=== PATIENT | female | born 1950 | race Asian ===

== ENCOUNTER 2017-03-21 09:20 | Day surgery (SDC) | payer OTHER ==
[2017-03-04 17:38] VITALS: BMI 26.0
[2017-03-21] MEDS ORDERED: MIDAZOLAM HCL 2 MG/2 ML SINGLE DOSE VIAL ONE ×2 (10:46)
[2017-03-21] MEDS ORDERED: CLINDAMYCIN 600 MG PREMIX BAG IVPB ONE (11:15)
[2017-03-21] MEDS ORDERED: ACETAMINOPHEN INJECTION 100 ML IVPB ONE (11:38)
[2017-03-21] MEDS ORDERED: GLYCOPYRROLATE 0.2 MG/1 ML VIAL ONE (11:46)
[2017-03-21] MEDS ORDERED: NEOSTIGMINE METHYLSULFATE 0.5 MG/ML - 10 ML MDV ONE (11:47)
[2017-03-21] MEDS ORDERED: oxyCODONE HCL 5 MG TABLET PO PRN (12:11)
--- NOTE | 2017-03-21 12:28 | OP ---
Operative Note - Note: Operative Date: 03/21/17 Pre-Operative Diagnosis: History of Breast Cancer, Breast Asymmetry after Breast Reconstruction Operation: Left Breast Staged Breast Reconstruction- Change to larger shaped implant. Implants: [place] MemoryShape Gel 495cc Surgeon: Dennis Godinez Anesthesiologist/[employer] PERSON: Kyle Mathis Anesthesia: General Operative Report Dictated: Yes
[2017-03-21] MEDS ORDERED: PROMETHAZINE HCL 25 MG/1 ML VIAL IVPUSH PRN (12:56)
[2017-03-21] MEDS ORDERED: ONDANSETRON 4 MG/2 ML VIAL IVPUSH PRN (12:56)
[2017-03-21] MEDS ORDERED: LACTATED RINGERS SOLUTION 1,000 ML IV SCH (13:00)
[2017-03-21 14:39] VITALS: TEMP 97.6
[2017-03-21 16:36] VITALS: BP 121/62; PULSE 70
--- NOTE | 2017-03-22 11:31 | OP ---
DATE OF OPERATION: 03/21/2017 AGE: 66 SEX: Female. PREOPERATIVE DIAGNOSIS: History of breast cancer with breast asymmetry after reconstruction. POSTOPERATIVE DIAGNOSIS: History of breast cancer with breast asymmetry after reconstruction. PROCEDURE PERFORMED: Left breast staged reconstruction with removal of breast implant and change to a larger, shaped implant. SURGEON: Dennis Shepherd MD ANESTHESIA: General, Dr. Mathis. BRIEF HISTORY: The patient is status post left breast cancer with a total mastectomy on that side, performed by . The patient has undergone radiation to the left breast and subsequently has severe radiation changes on that side at a point after her reconstruction was completed. The patient now presents with a modest asymmetry with increased upper pole fullness and a slightly decreased volume on the left side compared to the right side and presents for exchange to a shaped and slightly larger implant. DESCRIPTION OF PROCEDURE: The patient was on the operating table in supine position, and general anesthesia was administered by the anesthesiologist. The area of the chest was prepped and draped in the usual sterile fashion, and the right breast was kept in the operative field. An inframammary incision was made in the inframammary fold as marked with the patient in the standing position. This incision was 8 cm in length and carried down sharply through the subcutaneous tissues using electrocautery. The implant capsule was entered through the AlloDerm which has been well incorporated. The implant was removed, and a fiberoptic lighted retractor was introduced onto the field. This retractor was used to further extend the implant pocket to accommodate the shaped, larger implant. Gloves were changed, and the pocket was irrigated with dilute betadine solution. The implant selected was a 495-mL [place] MemoryShape Tall Height implant. The implant was inserted with the assistance of a Hebert Funnel, and the markings on the implant were used to confirm proper orientation. The implant was inserted without difficulty, and the pocket was further adjusted with the implant in place. The wound was then closed in layered fashion. Deep tissues were closed with No. 3-0 Biosyn suture in interrupted buried fashion, and deep dermal layer of 4-0 V-Loc 90 was used for skin. The wound was further secured with Steri-Strips, and sterile dressings were applied and secured with a surgical bra. The patient was then taken from the operating room to the recovery room in satisfactory condition, having tolerated the procedure well. DENNIS SHEPHERD M.D. /[id number]
--- NOTE | 2017-03-24 13:30 | PATH ---
Surgical Pathology Report Patient Name: BALDEMAR IQBAL Med. Rec. #: [id number] /Age/Gender: 1950 (Age: 66) / F Account: [id number] Location: [facility] Taken: 03/21/2017 Received: 03/21/2017 Reported: 03/24/2017 Physicians: Dennis Godinez M.D. Specimen(s) Received RIGHT BREAST IMPLANT Clinical History Breast cancer Final Diagnosis IMPLANT, LEFT BREAST, REMOVAL: BREAST IMPLANT (GROSS EXAM). Electronically Signed Bobby Soriano M.D. Gross Description Received fresh labeled "left breast implant" is a 15 x 15 x 3.5 cm gel-filled plastic sac consistent with a breast implant. No rupture is identified. The specimen is designated "[place] 400cc [id number]". This is for gross identification only. [facility]/03/21/2017 [facility]/03/21/2017
== END 2017-03-21 16:48 | disposition home or self-care (01) ==
LOC: JASU-SURG 09:20
PROVIDERS: ATTEND Plastic Surgery
PROC: 0HWU0JZ Revision of Synthetic Substitute in Left Breast, Open Approach (ICD-10-PCS; principal; 2017-03-21 11:00)
DX: N65.1 Disproportion of reconstructed breast (principal); Z85.3 Personal history of malignant neoplasm of breast
CPT/HCPCS: 88300-TC; 94760

== ENCOUNTER 2019-05-12 08:29 | Day surgery (SDC) | payer OTHER | END 2019-05-12 11:00 | disposition still patient (30) | LOC: JASU-ENDO 08:29 ==

== ENCOUNTER 2019-05-12 11:01 | Inpatient (IN) | payer OTHER ==
[2019-05-12] MEDS ORDERED: ASPIRIN 325 MG ENTERIC COATED TABLET (FP) PO ONE (12:13)
[2019-05-12] MEDS ORDERED: NITROGLYCERIN 2% OINTMENT - 1GM PACKET TD ONE ×2 (12:13→12:24)
[2019-05-12] MEDS ORDERED: ASPIRIN 325 MG TABLET ONE (12:24)
--- NOTE | 2019-05-12 13:02 | PDOC ---
Documentation entered by Justine Carrera SCRIBE, acting as scribe for Daryn Harvey MD. Daryn Harvey MD: This documentation has been prepared by the Debi moreno Sammi, SCRIBE, under my direction and personally reviewed by me in its entirety. I confirm that the documentation accurately reflects all work, treatment, procedures, and medical decision making performed by me. History of Present Illness - General Chief Complaint: Chest Pain Stated Complaint: Chest Pain Time Seen by Provider: 05/12/19 11:18 - History of Present Illness Initial Comments: 05/12/19 12:16 The patient is a 68 year old female with PMH of breast cancer (in remission 6 years), diabetes, hypothyroidism, sarcoidosis who presents with ~2 hours of constant chest pressure, 7/10 in severity, with associated shortness of breath, alleviated with deep inspiration. The patients onset of symptoms before routine colonoscopy. She notes utilizing prep for the procedure yesterday. Past History - Past Medical History Allergies/Adverse Reactions: Allergies Allergy/AdvReac Type Severity Reaction Status Date / Time loratadine [From Claritin] Allergy Severe Verified 05/12/19 11:08 Sulfa (Sulfonamide Allergy Severe Verified 05/12/19 11:08 Antibiotics) [Sulfa(Sulfonamide Antibiotics)] ciprofloxacin [From Cipro] Allergy Intermediate Verified 05/12/19 11:08 Penicillins Allergy Mild Verified 05/12/19 11:08 ceftriaxone Allergy ERYTHEMA Verified 05/12/19 11:08 vancomycin Allergy Verified 05/12/19 11:08 cantalope/honeydew Allergy Uncoded 05/12/19 11:08 YELLOW/GREEN ARNALDO Allergy Uncoded 05/12/19 11:08 Home Medications: Ambulatory Orders Multivitamin [Multi-Day Vitamins] 1 each PO DAILY 07/30/12 Vitamin B Complex 1 each PO DAILY 07/30/12 Docosahexanoic Acid/Epa [Fish Oil Softgel] 1 each PO DAILY 05/10/13 Calcium Carbonate/Vitamin D3 [Calcium 500-Vit D3 600 Tablet] 1 tab PO DAILY 11/07 Levothyroxine Sodium [Levo-T] 0.25 tab PO DAILY 06/27/16 metFORMIN HCL [Metformin HCl] 500 mg PO DAILY 06/27/16 Ascorbate Calcium [Vitamin C] 500 mg PO DAILY 03/04/17 Cyanocobalamin [Vitamin B12 -] 1,000 mcg PO DAILY 05/11/19 Pyridoxine HCl (Vitamin B6) [Vitamin B-6] 1 tab PO DAILY 05/11/19 Anemia: Yes Asthma: No Cancer: Yes (left breast ca with positive nodes, S/P RT, CHEMO) Cardiac Disorders: No CVA: No COPD: No CHF: No Dementia: No Diabetes: Yes (NIDDM) GI Disorders: Yes (ATROPHIC GASTRITIS, HIATAL HERNIA) Disorders: No HTN: No Hypercholesterolemia: Yes Liver Disease: No Seizures: No Thyroid Disease: Yes (HYPOTHYROID, THYROID NODULES) - Surgical History Abdominal Surgery: No Appendectomy: No Cardiac Surgery: No Cholecystectomy: Yes (LAPAROSCOPIC) Lung Surgery: No Neurologic Surgery: No Orthopedic Surgery: Yes (FX ARM) - Suicide/Smoking/Psychosocial Hx Smoking Status: No Smoking History: Never smoked Have you smoked in the past 12 months: No Number of Cigarettes Smoked Daily: 0 Information on smoking cessation initiated: No Hx Alcohol Use: No Drug/Substance Use Hx: No Substance Use Type: None Hx Substance Use Treatment: No Cardiac Specific PMH - Complaint Specific PMHX Pacemaker: No Review of Systems - Review of Systems Comments:: 05/12/19 12:17 CONSTITUTIONAL: No fever, no chills, no fatigue EYES: No visual changes ENT: No ear pain, no sore throat CARDIOVASCULAR: (+)chest pressure. no palpitations RESPIRATORY: (+)SOB. No cough GI: No abdominal pain, no nausea, no vomiting, no constipation, no diarrhea GENITOURINARY: No dysuria, no frequency, no hematuria MUSKULOSKELETAL: No backpain, no joint pain, no myalgias SKIN: No rash NEURO: No headache *Physical Exam - Vital Signs Last Vital Signs Temp Pulse Resp BP Pulse Ox 97.7 F 65 20 169/75 100 05/12/19 11:09 05/12/19 11:09 05/12/19 11:09 05/12/19 11:05/12/19 11:09 - Physical Exam Comments: 05/12/19 13:08 CONSTITUTIONAL: Well-appearing; well-nourished; in no apparent distress HEAD: (+)alopecia. Normocephalic; atraumatic EYES: PERRL; EOM intact ENMT: External appears normal; normal oropharynx NECK: Supple; non-tender; no cervical lymphadenopathy CARD: Normal S1, S2; no murmurs, rubs, or gallops CHEST: (+)Left mastectomy with implant. RESP: Normal chest excursion with respiration; breath sounds clear and equal bilaterally; no wheezes, rhonchi, or rales ABD: Soft, non-distended; non-tender; no palpable organomegaly, no palpable hernias EXT: Normal ROM in all four extremities; non-tender to palpation; distal pulses intact SKIN: Warm, dry, no rash NEURO: No focal neurological deficiencies. Heart Score/ECG Review - History History: Moderately suspicious - Electrocardiogram EKG: Normal - Age Age: >/= 65 - Risk Factors Risk Factors Heart Score: Yes Hx Hypercholesterolemia, Yes Hx Diabetes Based on the list above the patient has:: 1-2 risk factors - Troponin Troponin: </= normal limit - Score Heart Score - Total: 4 - ECG Impressions Comment:: 05/12/19 12:17 normal sinus rhythm normal ECG ED Treatment Course - LABORATORY CBC & Chemistry Diagram: 05/12/19 13:43 05/12/19 13:43 - ADDITIONAL ORDERS Additional order review: Laboratory Results 05/12/19 13:43 Sodium 141 Potassium 3.8 Chloride 105 Carbon Dioxide 30 Anion Gap 5 L BUN 12.9 Creatinine 0.8 Est GFR (CKD-EPI)AfAm 88.42 Est GFR (CKD-EPI)NonAf 76.29 Random Glucose 114 H Calcium 9.2 Total Bilirubin 0.4 AST 21 ALT 27 Alkaline Phosphatase 107 Creatine Kinase 217 H Creatine Kinase Index 1.2 CK-MB (CK-2) 2.7 Troponin I < 0.02 Total Protein 6.9 Albumin 3.5 05/12/19 13:43 RBC 4.48 MCV 82.9 MCHC 33.1 RDW 14.7 D MPV 8.9 Neutrophils % 54.4 D Lymphocytes % 35.1 D Monocytes % 5.8 Eosinophils % 3.3 D Basophils % 1.4 - RADIOLOGY Radiology Studies Ordered: Category Date Time Status CHEST X-RAY PORTABLE* [RAD] Stat Radiology 05/12/19 11:58 Completed - Medications Given in the ED: ED Medications Discontinued Medications Generic Name Dose Route Start Last Admin Trade Name Freq PRN Reason Stop Dose Admin Aspirin 325 mg 05/12/19 12:13 05/12/19 12:40 Ecotrin - PO 05/12/19 12:14 325 mg ONCE ONE Administration Nitroglycerin 1 inch 05/12/19 12:13 05/12/19 12:40 Nitro-Bid 2% Paste - TD 05/12/19 12:14 1 inch ONCE ONE Administration Medical Decision Making - Medical Decision Making 05/12/19 13:00 pt is a 68 y/o female with hx/o beast ca (now in remission), dm, hypothyroidism who presents from endoscopy suite for chest presure, and sob. pt was scheduled for elective colonoscopy when she developed sxs. pt is well appearing in the ed. ekg is wnl. ches x-ray shows no acute pathology. will administer asa, ntg trasndermal. will obtain cardiac profile. will pace in obs. 05/12/19 14:56 pt with improved chest pressure. heart score of 4. will place in obs. *DC/Admit/Observation/Transfer Diagnosis at time of Disposition: Acute coronary syndrome - Discharge Dispostion Condition at time of disposition: Fair Decision to Admit order: Yes - Referrals Referrals: Karen Katz [Primary Care Provider] - - Patient Instructions - Post Discharge Activity
[2019-05-12 13:58] LABS: BASO % 1.4 % (0-2.0); EOS % 3.3 % (0-4.5); HEMATOCRIT 37.2 % (32.4-45.2); HEMOGLOBIN 12.3 GM/dL (10.7-15.3); LYMPH % 35.1 % (8-40); MCH 27.4 pg (25.7-33.7); MCHC 33.1 g/dl (32.0-36.0); MEAN CELL VOLUME 82.9 fl (80-96); MEAN PLT VOLUME 8.9 fl (7.5-11.1); MONO % 5.8 % (3.8-10.2); NEUT % 54.4 % (42.8-82.8); PLATELET COUNT 262 K/MM3 (134-434); RBC 4.48 M/mm3 (3.60-5.2); RDW 14.7 % (11.6-15.6); WHITE BLOOD COUNT 5.9 K/mm3 (4.0-10.0)
[2019-05-12 14:36] LABS: ALBUMIN 3.5 g/dl (3.4-5.0); ALK PHOS 107 U/L (45-117); ANION GAP 5 MMOL/L (8-16); BILIRUBIN,TOTAL 0.4 mg/dL (0.2-1); BLOOD UREA NITROGEN 12.9 mg/dL (7-18); CALCIUM 9.2 mg/dL (8.5-10.1); CHLORIDE 105 mmol/L (98-107); CO2 30 mmol/L (21-32); CREATININE 0.8 mg/dL (0.55-1.3); GLUCOSE,RANDOM 114 mg/dL (74-106); POTASSIUM 3.8 mmol/L (3.5-5.1); SGOT/AST 21 U/L (15-37); SGPT/ALT 27 U/L (13-61); SODIUM 141 mmol/L (136-145); TOT PROT 6.9 g/dl (6.4-8.2)
--- NOTE | 2019-05-12 15:09 | EKG ---
Test Reason : Blood Pressure : / mmHG Vent. Rate : 062 BPM Atrial Rate : 062 BPM P-R Int : 140 ms QRS Dur : 090 ms QT Int : 444 ms P-R-T Axes : 067 079 056 degrees QTc Int : 450 ms POOR DATA QUALITY, INTERPRETATION MAY BE ADVERSELY AFFECTED NORMAL SINUS RHYTHM NORMAL ECG WHEN COMPARED WITH ECG OF 05-JUN-2014 21:43, NO SIGNIFICANT CHANGE WAS FOUND Confirmed by EVELYN ELAM MD ([id number]) on 05/12/2019 3:09:01 PM Referred By: Confirmed By:EVELYN ELAM MD
--- NOTE | 2019-05-12 16:49 | HP ---
CHIEF COMPLAINT: Chest heaviness PCP: Dr. Sterling Jones HISTORY OF PRESENT ILLNESS: 68 y/o female PMH of NIDDM, HLD, hypothyroidism, sarcoidosis, and breast cancer sent to ED from colonoscopy suite c/o a sensation of heaviness in the chest. Pt came to hospital this AM for colonoscopy. She performed bowel prep at home yesterday. The pt was being administered anesthesia via saline lock and she began to feel a heaviness in her chest and have SOB. The sensation is located diffusely across her chest, non-radiating, better with deep inspiration, lasted for 2 hours, was better with nitroglycerin paste and ASA. Pain was 8/10 now 5/ 10. She now has a headache. She denies dizziness, nausea, vomiting, aura, LOC, vision change. ER course was notable for: (1) EKG with t wave inversions in leads v1 and v3 (2) Trop < 0.02 x1 Recent Travel: [place] for wedding, + sick contacts PAST MEDICAL HISTORY: - NIDDM - HLD not on medication - Hypothyroidism - Breast cancer s/p LEFT mastectomy and implant - Sarcoidosis PAST SURGICAL HISTORY: - LEFT breast mastectomy and implant - Hysterectomy (1990) - Ovariectomy (2017) - Cholecystectomy Social History: Smoking: Never Alcohol: Wine, socially Drugs: Denies Family History: Mother: cancer, Father: sarcoidosis Allergies: Many antibiotics. Pt reports allergy to all antibiotics except azithromycin. loratadine [From Claritin] Allergy (Severe, Verified 05/12/19 11:08) DEVELOPED WEAKNESS ON ONE SIDE OF BODY AFTER TAKING FOR 3 DAYS Sulfa (Sulfonamide Antibiotics) [Sulfa(Sulfonamide Antibiotics)] Allergy (Severe , Verified 05/12/19 11:08) tingling and numbness of left side ciprofloxacin [From Cipro] Allergy (Intermediate, Verified 05/12/19 11:08) UNSURE Penicillins Allergy (Mild, Verified 05/12/19 11:08) DOESN'T REMEMBER SXS ceftriaxone Allergy (Verified 05/12/19 11:08) ERYTHEMA SEE ADR FORM DATED 02/06/12. REACTION MILD: ERYTHEMA vancomycin Allergy (Verified 05/12/19 11:08) patient relayed left sided weakness, flushed sensation, throat itchy "closing up". cantalope/honeydew Allergy (Uncoded 05/12/19 11:08) YELLOW/GREEN ARNALDO Allergy (Uncoded 05/12/19 11:08) HOME MEDICATIONS: Home Medications Medication Instructions Recorded Multivitamin [Multi-Day Vitamins] 1 each PO DAILY 07/30/12 Vitamin B Complex 1 each PO DAILY 07/30/12 Docosahexanoic Acid/Epa [Fish Oil 1 each PO DAILY 05/10/13 Softgel] Calcium Carbonate/Vitamin D3 1 tab PO DAILY 06/27/16 [Calcium 500-Vit D3 600 Tablet] Levothyroxine Sodium [Levo-T] 0.25 tab PO DAILY 06/27/16 metFORMIN HCL [Metformin HCl] 500 mg PO DAILY 06/27/16 Ascorbate Calcium [Vitamin C] 500 mg PO DAILY 03/04/17 Cyanocobalamin [Vitamin B12 -] 1,000 mcg PO DAILY 05/11/19 Pyridoxine HCl (Vitamin B6) 1 tab PO DAILY 05/11/19 [Vitamin B-6] REVIEW OF SYSTEMS CONSTITUTIONAL: Absent: fever, chills, diaphoresis, generalized weakness, malaise, loss of appetite, weight change HEENT: Absent: rhinorrhea, nasal congestion, throat pain, throat swelling, difficulty swallowing, mouth swelling, ear pain, eye pain, visual changes CARDIOVASCULAR: Absent: chest pain, syncope, palpitations, irregular heart rate, lightheadedness , peripheral edema RESPIRATORY: Absent: cough, shortness of breath, dyspnea with exertion, orthopnea, wheezing, stridor, hemoptysis GASTROINTESTINAL: Absent: abdominal pain, abdominal distension, nausea, vomiting, diarrhea, constipation, melena, hematochezia GENITOURINARY: Absent: dysuria, frequency, urgency, hesitancy, hematuria, flank pain, genital pain MUSCULOSKELETAL: Absent: myalgia, arthralgia, joint swelling, back pain, neck pain SKIN: Absent: rash, itching, pallor HEMATOLOGIC/IMMUNOLOGIC: Absent: easy bleeding, easy bruising, lymphadenopathy, frequent infections ENDOCRINE: Absent: unexplained weight gain, unexplained weight loss, heat intolerance, cold intolerance NEUROLOGIC: Absent: headache, focal weakness or paresthesias, dizziness, unsteady gait, seizure, mental status changes, bladder or bowel incontinence PSYCHIATRIC: Absent: anxiety, depression, suicidal or homicidal ideation, hallucinations. PHYSICAL EXAMINATION Vital Signs - 24 hr 05/12/19 05/12/19 11:09 11:12 Temperature 97.7 F 98.1 F Pulse Rate 65 Pulse Rate [ 68 Left Radial] Respiratory 20 18 Rate Blood Pressure 169/75 Blood Pressure 172/82 H [Left Arm] O2 Sat by Pulse 100 98 Oximetry (%) GENERAL: Awake, alert, and fully oriented, in no acute distress. HEAD: NCAT. Hair loss 2/2 chemotherapy EYES: Pupils equal, round and reactive to light, extraocular movements intact, sclera anicteric, conjunctiva clear. No lid lag. EARS, NOSE, THROAT: Ears normal, nares patent, oropharynx clear without exudates. Dry mucous membranes. NECK: Normal range of motion, supple without lymphadenopathy, JVD, or masses. LUNGS: Breath sounds equal, clear to auscultation bilaterally. Left upper lobe wheeze. No wheezes, and no crackles. No accessory muscle use. HEART: Regular rate and rhythm, normal S1 and S2 without murmur, rub or gallop. ABDOMEN: Soft, nontender, not distended, normoactive bowel sounds, no guarding, no rebound, no masses. No hepatomegaly or splenomegaly. MUSCULOSKELETAL: Normal range of motion at all joints. No bony deformities or tenderness. No CVA tenderness. UPPER EXTREMITIES: 2+ pulses, warm, well-perfused. No cyanosis. No clubbing. No peripheral edema. LOWER EXTREMITIES: 2+ pulses, warm, well-perfused. No calf tenderness. No peripheral edema. NEUROLOGICAL: Cranial nerves II-XII intact. Normal speech. Normal gait. PSYCHIATRIC: Cooperative. Good eye contact. Appropriate mood and affect. SKIN: Erythema of nose and face. Erythema consistent with h/o radiation to chest. Warm, dry, normal turgor, no rashes or lesions noted, normal capillary refill. Laboratory Results - last 24 hr 05/12/19 05/12/19 13:43 13:43 WBC 5.9 RBC 4.48 Hgb 12.3 Hct 37.2 D MCV 82.9 MCH 27.4 MCHC 33.1 RDW 14.7 D Plt Count 262 MPV 8.9 Absolute Neuts (auto) 3.2 Neutrophils % 54.4 D Lymphocytes % 35.1 D Monocytes % 5.8 Eosinophils % 3.3 D Basophils % 1.4 Nucleated RBC % 0 Sodium 141 Potassium 3.8 Chloride 105 Carbon Dioxide 30 Anion Gap 5 L BUN 12.9 Creatinine 0.8 Est GFR (CKD-EPI)AfAm 88.42 Est GFR (CKD-EPI)NonAf 76.29 Random Glucose 114 H Calcium 9.2 Total Bilirubin 0.4 AST 21 ALT 27 Alkaline Phosphatase 107 Creatine Kinase 217 H Creatine Kinase Index 1.2 CK-MB (CK-2) 2.7 Troponin I < 0.02 Total Protein 6.9 Albumin 3.5 ASSESSMENT/PLAN: 68 y/o female PMH of NIDDM, HLD, hypothyroidism, sarcoidosis, and breast cancer sent to ED from colonoscopy suite c/o a sensation of heaviness in the chest. # ACS VS anaphylaxis VS vasovagal - Chest pain and SOB in setting of: s/p chest radiation, HLD, DM, pressure chest pain, MUGA scan 6 years ago prior to initiation of chemo but no cardiac workup since - Trop NEG x1, cont. to trend q6h - ASA 325 mg - Stress test, NPO after midnight - Hydrate 1L NS - F/u lipid panel # DM - Hold home regimen: Metformin - ISS # Hypothyroidism - Cont. home regimen: Synthroid 25 mcg PO QD # Sarcoidosis - Cont. care out-patient # Breast cancer - Cont. care out-patient # HLD - f/u lipids # F/E/N - No standing fluids; 1L bolus provided - Cont. to monitor electrolytes - Diabetic diet & NPO after midnight # DVT prophylaxis - Heparin # Disposition - Telemetry Herbert Tirado MD Visit type - Emergency Visit Emergency Visit: Yes ED Registration Date: 05/12/19 Care time: The patient presented to the Emergency Department on the above date and was hospitalized for further evaluation of their emergent condition. - New Patient This patient is new to me today: Yes Date on this admission: 05/12/19 - Critical Care Critical Care patient: No ATTENDING PHYSICIAN STATEMENT I saw and evaluated the patient. I reviewed the resident's note and discussed the case with the resident. I agree with the resident's findings and plan as documented. SUBJECTIVE: OBJECTIVE: ASSESSMENT AND PLAN:
[2019-05-12] MEDS ORDERED: SODIUM CHLORIDE 1,000 ML IV STA (17:38)
[2019-05-12] MEDS ORDERED: ACETAMINOPHEN 325 MG TABLET (FP) PO PRN (17:59)
--- NOTE | 2019-05-12 18:08 | PN ---
Teaching Attending Note Name of Resident: Herbert Tirado ATTENDING PHYSICIAN STATEMENT I saw and evaluated the patient. I reviewed the resident's note and discussed the case with the resident. I agree with the resident's findings and plan as documented. SUBJECTIVE:68yo F with PMH breast cancer dx 6 years ago received chemo and Rtx now in remission, DM, hypothyroid and sarcoidosis c/o CP just prior to scheduled colonoscopy. pt arrived to [facility] today for routine colonoscopy and during anesthesia induction developed CP. non radiating and assoc with SOB. pt states was relieved 2H later after Nitropaste that was given. had MUGA scan 6 years ago prior to initiation of chemo but no cardiac workup since then. does have intermittent CP that last seconds at rest but has ignored it as always self resolved. no recent medication changes. denies SOb, fever, chills, N/v/C/D OBJECTIVE: Last Vital Signs Temp Pulse Resp BP Pulse Ox 98.1 F 71 18 129/65 98 05/12/19 17:43 05/12/19 17:43 05/12/19 17:43 05/12/19 17:43 05/12/19 11:12 General NAD CV S1 S2 RRR no murmur/rub/gallop no chest wall tenderness Lungs CTA B/L no wheezing/rales/rhonchi ASSESSMENT AND PLAN: 68yo F with PMH breast cancer dx 6 years ago received chemo and Rtx now in remission, DM, hypothyroid and sarcoidosis c/o CP during anesthesia for scheduled colonoscopy 1. r/o ACS- most likely due to transient hypotension due to anesthesia however given multiple risk factors and lack of previous workup would recommend further testing and monitoring. tele admission for continuous cardiac monitoring, trend CE Q6H, stress test in AM. Cardio consult 2. DM- hold oral agents. bgm and iss 3. hypothyroid- has been stable per pt. check TSH. cont LT4 4. sarcoidosis- not on steroids. closely monitored by pulmonary as outpatient 5. breast ca- in remission. outpatient follow up 6. DVT ppx- EAM 7. spoke with and daughter present at bedside. all questions answered. verbalized understanding and agreement with plan
[2019-05-12 20:14] VITALS: BMI 24.3
[2019-05-12] MEDS: HEPARIN NA (PORCINE) 5,000 UNITS/ML 1ML VIAL SQ SCH (23:04)
[2019-05-12] MEDS: INSULIN SLIDING SCALE (NOVOLOG) 1 VIAL SQ SCH (23:08)
[2019-05-13] MEDS: HEPARIN NA (PORCINE) 5,000 UNITS/ML 1ML VIAL SQ SCH ×2 (06:04→13:36)
[2019-05-13] MEDS: INSULIN SLIDING SCALE (NOVOLOG) 1 VIAL SQ SCH ×2 (06:04→12:36)
[2019-05-13 06:24] LABS: BASO % 0.9 % (0-2.0); EOS % 3.5 % (0-4.5); HEMOGLOBIN 10.8 GM/dL (10.7-15.3); MCH 27.3 pg (25.7-33.7); MCHC 32.8 g/dl (32.0-36.0); MEAN CELL VOLUME 83.4 fl (80-96); MONO % 6.1 % (3.8-10.2); NEUT % 56.5 % (42.8-82.8); PLATELET COUNT 234 K/MM3 (134-434); RBC 3.96 M/mm3 (3.60-5.2); WHITE BLOOD COUNT 6.1 K/mm3 (4.0-10.0)
[2019-05-13 06:52] LABS: ALK PHOS 91 U/L (45-117); ANION GAP 6 MMOL/L (8-16); BILIRUBIN,TOTAL 0.3 mg/dL (0.2-1); BLOOD UREA NITROGEN 15.4 mg/dL (7-18); CHLORIDE 108 mmol/L (98-107); CHOLESTEROL 179 mg/dL (50-200); CO2 28 mmol/L (21-32); GLUCOSE,RANDOM 122 mg/dL (74-106); HDL CHOLESTEROL 49 mg/dL (40-60); MAGNESIUM 2.3 mg/dL (1.8-2.4); PHOSPHOROUS 3.9 mg/dL (2.5-4.9); POTASSIUM 3.9 mmol/L (3.5-5.1); SGOT/AST 17 U/L (15-37); SGPT/ALT 24 U/L (13-61); SODIUM 142 mmol/L (136-145); TOT PROT 5.8 g/dl (6.4-8.2); TRIGLYCERIDES 152 mg/dL (0-150)
[2019-05-13] MEDS ORDERED: LEVOTHYROXINE NA 25 MCG TABLET (FP) PO SCH ×2 (07:00→08:19)
[2019-05-13] MEDS ORDERED: ASPIRIN 325 MG ENTERIC COATED TABLET (FP) PO SCH (10:00)
[2019-05-13] MEDS ORDERED: REGADENOSON 0.4 MG/5 ML PRE-FILLED SYRINGE IVPUSH ONE ×2 (10:40→10:45)
--- NOTE | 2019-05-13 12:44 | PN ---
Teaching Attending Note Name of Resident: Herbert Tirado ATTENDING PHYSICIAN STATEMENT I saw and evaluated the patient. I reviewed the resident's note and discussed the case with the resident. I agree with the resident's findings and plan as documented. SUBJECTIVE:asymptomatic. no recurrent episodes of CP. denies CP, OB, fever, chills, N/V/C/D OBJECTIVE: Last Vital Signs Temp Pulse Resp BP Pulse Ox 98.3 F 71 18 121/69 97 05/13/19 07:56 05/13/19 07:56 05/13/19 07:56 05/13/19 07:56 05/13/19 09:00 General NAD ASSESSMENT AND PLAN: 68yo F with PMH breast cancer dx 6 years ago received chemo and Rtx now in remission, DM, hypothyroid and sarcoidosis c/o CP during anesthesia for scheduled colonoscopy 1. r/o ACS- most likely due to transient hypotension due to anesthesia however given multiple risk factors and lack of previous workup would recommend further testing and monitoring. cardiac enzymes neg x3. plan for NMST today. cardio follow up. 2. DM- hold oral agents. bgm and iss 3. hypothyroid- TSH high. will increase LT4. will need repeat TSH in 6 weeks 4. sarcoidosis- not on steroids. closely monitored by pulmonary as outpatient 5. breast ca- in remission. outpatient follow up 6. DVT ppx- EAM 7. d/c home pending results of NMST
--- NOTE | 2019-05-13 14:07 | EKG ---
Test Reason : Blood Pressure : / mmHG Vent. Rate : 058 BPM Atrial Rate : 058 BPM P-R Int : 140 ms QRS Dur : 086 ms QT Int : 460 ms P-R-T Axes : 062 074 049 degrees QTc Int : 451 ms SINUS BRADYCARDIA OTHERWISE NORMAL ECG WHEN COMPARED WITH ECG OF 12-MAY-2019 11:05, NO SIGNIFICANT CHANGE WAS FOUND Confirmed by KAT SUAREZ MD ([id number]) on 05/13/2019 2:06:55 PM Referred By: Confirmed By:KAT SUAREZ MD
[2019-05-13 14:35] VITALS: BP 131/64; PULSE 72; TEMP 98.6
--- NOTE | 2019-05-13 14:45 | CONSULT ---
Consult Consult Specialty:: Cardiology Reason for Consultation:: Chest Pain- heaviness and SOB - History of Present Illness Chief Complaint: SOB+ Chest heaviness History of Present Illness: 68 y/o F, PMH of NIDDM, HLD, hypothyroidism, sarcoidosis, and breast cancer is sent to the ED from colonoscopy suite after c/o heaviness in the chest and SOB immediately after administration of anesthesia. She describes the sensation which is located diffusely across her chest, non-radiating, better with deep inspiration. Pt reports that the symptoms lasted few hours and only resolved after she was given a nitroglycerin patch and aspirin. She denies any previous episodes of similar symptoms. Currently, pt reports that the symptoms have resolved and she has no other c/o. Denies f/c/n/v/dizziness, aura, LOC, vision changes, numbness or tingling. - History Source History Provided By: Patient Limitations to Obtaining History: No Limitations - Past Medical History Cardio/Vascular: Yes: Hyperlipdemia Reproductive: Yes: Fibroids ...: No Endocrine: Yes: Diabetes Mellitus, Hypothyroidism Additional Medical History: Breast cancer s/p radiation, chemo and surgical resection of left breast - Past Surgical History Past Surgical History: Yes: Hysterectomy - Alcohol/Substance Use Hx Alcohol Use: No - Smoking History Smoking history: Never smoked Have you smoked in the past 12 months: No Aproximately how many cigarettes per day: 0 Home Medications - Allergies Allergies/Adverse Reactions: Allergies Allergy/AdvReac Type Severity Reaction Status Date / Time loratadine [From Claritin] Allergy Severe Verified 05/12/19 11:08 Sulfa (Sulfonamide Allergy Severe Verified 05/12/19 11:08 Antibiotics) [Sulfa(Sulfonamide Antibiotics)] ciprofloxacin [From Cipro] Allergy Intermediate Verified 05/12/19 11:08 Penicillins Allergy Mild Verified 05/12/19 11:08 ceftriaxone Allergy ERYTHEMA Verified 05/12/19 11:08 vancomycin Allergy Verified 05/12/19 11:08 cantalope/honeydew Allergy Uncoded 05/12/19 11:08 YELLOW/GREEN ARNALDO Allergy Uncoded 05/12/19 11:08 - Home Medications Home Medications: Ambulatory Orders Levothyroxine Sodium [Levo-T] 0.25 tab PO DAILY 06/27/16 metFORMIN HCL [Metformin HCl] 500 mg PO DAILY 06/27/16 Levothyroxine [Synthroid -] 50 mcg PO DAILY 30 Days #30 tablet 05/13/19 Review of Systems - Review of Systems Constitutional: reports: No Symptoms Eyes: reports: No Symptoms HENT: reports: No Symptoms Neck: reports: No Symptoms Cardiovascular: reports: No Symptoms Respiratory: reports: No Symptoms Gastrointestinal: reports: No Symptoms Genitourinary: reports: No Symptoms Breasts: reports: No Symptoms Reported, Breast Implants Neurological: reports: No Symptoms Psychiatric: reports: No Symptoms Physical Exam Vital Signs: Vital Signs Temperature 98.6 F 05/13/19 14:34 Pulse Rate 72 05/13/19 14:34 Respiratory Rate 18 05/13/19 14:34 Blood Pressure 131/64 05/13/19 14:34 O2 Sat by Pulse Oximetry (%) 97 05/13/19 09:00 Constitutional: Yes: Well Nourished, No Distress, Calm Eyes: Yes: WNL, Conjunctiva Clear, EOM Intact HENT: Yes: WNL, Atraumatic, Normocephalic Neck: Yes: WNL, Supple, Trachea Midline Cardiovascular: Yes: WNL, Regular Rate and Rhythm Respiratory: Yes: WNL, Regular, CTA Bilaterally Gastrointestinal: Yes: WNL, Normal Bowel Sounds, Soft Breast(s): Yes: WNL Extremities: Yes: WNL Edema: No Psychiatric: Yes: WNL, Alert, Oriented Labs: CBC, BMP 05/13/19 05:45 05/13/19 05:45 Imaging - Results Chest X-ray: Image Reviewed EKG: Image Reviewed (MUGA scan normal- EF 69%) Assessment/Plan 68 y/o female PMH of NIDDM, HLD, hypothyroidism, sarcoidosis, and breast cancer sent to ED from colonoscopy suite s/p chest heaviness and sob w/ normal CXR, trop, ekg and CPKMB Likely from transient hypotension 2/2 to effects of anesthesia Not likely to cardiac etiology Normal myocardial perfusion on stress test No evidence of CAD Proceed w/ Colonoscopy as there is no cardiac contraindication Visit type - Emergency Visit Emergency Visit: Yes ED Registration Date: 05/12/19 Care time: The patient presented to the Emergency Department on the above date and was hospitalized for further evaluation of their emergent condition. - New Patient This patient is new to me today: Yes Date on this admission: 05/13/19 - Critical Care Critical Care patient: No ATTENDING PHYSICIAN STATEMENT I saw and evaluated the patient. I reviewed the resident's note and discussed the case with the resident. I agree with the resident's findings and plan as documented. SUBJECTIVE: OBJECTIVE: ASSESSMENT AND PLAN:
--- NOTE | 2019-05-13 15:08 | CON.CARD ---
Cardiology Consult (text) - Consultation Consultation Note: Reviewed this case with Juan C Treviño and agree with his findings. 68 F with CVD risk and sarcoidosis who has ho breast cancer sp chemo/radiation and now in remission. Scheduled for elective colonoscopy and had chest tightness which has now resolved. MANDY negative and without dynamic ECG changes. Stress test is negative for ischemia and EF is normal. -Noncardiac chest pain. -proceed with GI testing will see as needed.
[2019-05-14] MEDS ORDERED: LEVOTHYROXINE NA 25 MCG TABLET (FP) PO SCH (07:00)
== END 2019-05-13 17:41 | disposition home or self-care (01) | DRG 918 ==
LOC: JER 11:01 → JERBED 15:43 → J4S 17:31 → OBSVTOIN 17:38
PROVIDERS: ADMIT Internal Medicine; ATTEND Internal Medicine
DX: T88.59XA Other complications of anesthesia, initial encounter (principal); I95.89 Other hypotension; E11.9 Type 2 diabetes mellitus without complications; R07.89 Other chest pain; E03.9 Hypothyroidism, unspecified; D86.9 Sarcoidosis, unspecified; Z88.0 Allergy status to penicillin; Z79.84 Long term (current) use of oral hypoglycemic drugs; E78.5 Hyperlipidemia, unspecified; Z85.3 Personal history of malignant neoplasm of breast; Y83.8 Other surgical procedures as the cause of abnormal reaction of the patient, or of later complication, without mention of misadventure at the time of the procedure
CPT/HCPCS: 36415; 71045-TC-FY; 78452-TC; 80053; 80061; 82550; 82553; 82962; 83721; 83735; 84100; 84443; 84484; 85025; 93005; 93010; 93017; 99285-25; A9502; G0378; J1644; J2785; J7030

== ENCOUNTER 2024-05-20 01:11 | Emergency (ER) | payer OTHER ==
[2024-05-20 01:19] VITALS: BP 183/85; PULSE 78; RESP 18; TEMP 98.6; BMI 25.4
== END 2024-05-20 03:01 | disposition home or self-care (01) ==
LOC: JER 01:11
DX: H93.12 Tinnitus, left ear (principal); H92.02 Otalgia, left ear; R51.9 Headache, unspecified
CPT/HCPCS: 99283-25